=== PATIENT | female | born 1955 | race African-American/Black ===

== ENCOUNTER 2021-12-16 10:22 | Emergency (ER) | payer SELFPAY ==
[2021-12-16 10:35] VITALS: TEMP 98.1; BMI 20.5
[2021-12-16] MEDS ORDERED: ACETAMINOPHEN 325 MG TABLET (FP) PO ONE (11:15)
[2021-12-16] MEDS ORDERED: ACETAMINOPHEN 325 MG TABLET (FP) ONE (11:28)
[2021-12-16 11:55] LABS: BASO % 0.7 % (0-2.0); EOS % 0.5 % (0-4.5); HEMATOCRIT 31.3 % (32.4-45.2); HEMOGLOBIN 10.2 GM/dL (10.7-15.3); LYMPH % 35.9 % (8-40); MCH 29.7 pg (25.7-33.7); MCHC 32.7 g/dl (32.0-36.0); MEAN CELL VOLUME 90.7 fl (80-96); MEAN PLT VOLUME 7.3 fl (7.5-11.1); MONO % 9.7 % (3.8-10.2); NEUT % 53.2 % (42.8-82.8); PLATELET COUNT 329 10^3/uL (134-434); RBC 3.45 M/mm3 (3.60-5.2); RDW 13.4 % (11.6-15.6); WHITE BLOOD COUNT 6.1 K/mm3 (4.0-10.0)
[2021-12-16 12:16] LABS: ALBUMIN 4.5 g/dl (3.4-5.0); BLOOD UREA NITROGEN 23.2 mg/dL (7-18); INR 1.04 (0.83-1.09); MAGNESIUM 2.5 mg/dL (1.8-2.4)
[2021-12-16 12:19] LABS: ACTIVATED PTT 30.5 SECONDS (25.2-36.5); CREATININE 1.2 mg/dL (0.55-1.3)
[2021-12-16 12:21] LABS: BILIRUBIN,TOTAL 0.5 mg/dL (0.2-1); TOT PROT 8.8 g/dl (6.4-8.2)
[2021-12-16 14:59] VITALS: BP 146/59; PULSE 80
== END 2021-12-16 14:55 | disposition home or self-care (01) ==
LOC: JER 10:22
DX: M25.512 Pain in left shoulder (principal)
CPT/HCPCS: 36415; 71046-TC-FY; 80053; 83735; 84484; 85025; 85610; 85730; 93005; 93010; 99285-25